=== PATIENT | male | born 1940 | race Caucasian/White ===

== ENCOUNTER 2017-04-01 06:58 | Day surgery (SDC) | payer MEDICARE, BC ==
[~2017-04-01 06:58] MED LIST: Lactated Ringers 1,000 ML IV SCH; Sodium Chloride 0.9% 10 ML Syringe FLUSH PRN
[2017-04-01] MEDS ORDERED: Lactated Ringers 1,000 ML IV SCH (07:15)
[2017-04-01] MEDS ORDERED: Sodium Chloride 0.9% 10 ML Syringe FLUSH PRN (07:15)
[2017-04-01] MEDS ORDERED: Midazolam 1 MG/ML 2 ML SDV IV ONE (08:30)
[2017-04-01] MEDS ORDERED: Lidocaine 2% 100 MG/5 ML Syringe IVPUSH ONE (08:30)
[2017-04-01] MEDS ORDERED: Propofol 200 MG/20 ML SDV IV ONE (08:30)
--- NOTE | 2017-04-01 09:05 | PCM.OPNOTE ---
- General Post-Op/Procedure Note Date of Surgery/Procedure: 04/01/17 Operative Procedure(s): egd with bx Findings: gastroduodenitis hiatal hernia erosive esophagitis Pre Op Diagnosis: dysphagia Post-Op Diagnosis: gastroduodenitis. hiatal hernia. erosive esophagitis Anesthesia Technique: [facility] [place] Primary Surgeon: Harrison Dhillon Anesthesia Provider: Lolis Winter Pathology: stomach duodenum esophagus Complications: None Condition: Good Free Text/Narrative:: see dictation
--- NOTE | 2017-04-01 10:08 | PREOP ---
ADMISSION DATE: 04/01/2017 CHIEF COMPLAINT: Dysphagia. HISTORY OF PRESENT ILLNESS: This is a 76-year-old white male, who has had some issue with swallowing, has some complaints of food getting stuck in his throat, has gotten worse. He does note some improvement with drinking of carbonated beverages. No weight loss, but he does note some voice changes. Has a family history of esophageal stricture that has required some dilatation in the past. PAST MEDICAL HISTORY: Significant for hypertension and cerebral infarct. PAST SURGICAL HISTORY: Significant for a right BKA secondary to peripheral vascular disease and nonhealing venous extremity ulcer. FAMILY HISTORY: Significant for coronary artery disease. SOCIAL HISTORY: He is with 3 children. ALLERGIES: He has an allergy to codeine. MEDICATIONS: Include the followin. Diltiazem XR 120 mg extended release once daily. 2. Zocor 80 mg half tablet 1 time per day. 3. Lisinopril and hydrochlorothiazide 20/12.5 mg tablet 1 tablet per day. 4. Celexa 40 mg 1 time per day. REVIEW OF SYSTEMS: Essentially noncontributory. PHYSICAL EXAMINATION: GENERAL: This is a well-developed, well-nourished white male, appearing in no acute distress. HEENT: He is normocephalic, atraumatic. LUNGS: Clear to auscultation: HEART: Regular rate and rhythm. ABDOMEN: Soft, nontender. MUSCULOSKELETAL: Significant for right below-knee amputation. ASSESSMENT: History of dysphagia with family history of esophageal stricture. PLAN: EGD. Procedure and risks explained to the patient to include bleeding, perforation, infection. The patient expresses understanding and asked us to proceed. /[id number] /MODL MTDD
--- NOTE | 2017-04-01 11:43 | OR ---
DATE OF OPERATION: 04/01/2017 SURGEON: Harrison Dhillon MD PROCEDURE PERFORMED: Upper endoscopy with cold forceps biopsy. PREOPERATIVE DIAGNOSIS: Dysphagia. POSTOPERATIVE DIAGNOSES: Gastroduodenitis, hiatal hernia, and erosive esophagitis. INDICATIONS FOR PROCEDURE: This is a 76-year-old white male who has been having a history of intermittent dysphagia for the past year or so. He was offered and accepted an upper endoscopy as part of his workup. DESCRIPTION OF PROCEDURE: After an excellent IV sedation was administered, a bite block was inserted. A flexible endoscope was passed without difficulty down the patient's esophagus and into the stomach. The stomach was insufflated. The scope was passed through the pylorus to the second portion of the duodenum and slowly withdrawn. The following findings were noted. In the first portion of the duodenum, mild duodenitis, and biopsies were taken. Stomach demonstrated a hiatal hernia as well as some diffuse gastritis and biopsies were taken. He does appear to have a small hiatal hernia with mild stricture and erosive esophagitis just proximal to this. Biopsies were taken of the distal esophagus as well. The remainder of our esophageal exam was unremarkable. Stomach was deflated. The scope was removed. The patient tolerated the procedure well and was taken to the recovery room in a good condition. /[id number] Lilian GLASER/HEIDI
== END 2017-04-01 10:05 | disposition home or self-care (01) ==
LOC: FB.SDS 06:58
PROVIDERS: ATTEND Surgery
DX: K29.80 Duodenitis without bleeding (principal); K29.50 Unspecified chronic gastritis without bleeding; K22.10 Ulcer of esophagus without bleeding; K44.9 Diaphragmatic hernia without obstruction or gangrene; I10 Essential (primary) hypertension; Z88.8 Allergy status to other drugs, medicaments and biological substances; Z79.899 Other long term (current) drug therapy
CPT/HCPCS: 00740; 43239; 88305; 88312; 88313; 88342; J2250; J2704; J7120